=== PATIENT | female | born 1985 | race Caucasian/White ===

== ENCOUNTER 2019-02-06 12:55 | Emergency (ER) | payer MEDICAID, OTHER, SELFPAY ==
[~2019-02-06] VITALS: Ht 162.6 cm; Wt 101.8 kg
[~2019-02-06 12:55] MED LIST: ACET500T2; GUAIFENESIN DM
[2019-02-06] MEDS ORDERED: ACETAMINOPHEN 500 MG TAB PO ONE (14:30)
[2019-02-06] MEDS ORDERED: KETOROLAC 30 MG/ML VIAL (J1885) IV ONE (14:30)
[2019-02-06] MEDS ORDERED: METOCLOPRAMIDE INJ 10MG/2ML VIAL (J2765) IV ONE (14:30)
[2019-02-06] MEDS ORDERED: diphenhydrAMINE INJ 50MG/ML VIAL (J1200) IV ONE (14:30)
--- NOTE | 2019-02-06 15:53 | REP ---
CT Head without contrast HISTORY: Migraine headache COMPARISON: None There is no intraparenchymal hemorrhage, acute infarct, mass or midline shift. The ventricular system is normal in appearance. There is no extra cerebral collection. There is no fracture. The mastoid air cells are underdeveloped. The visualized sinuses are clear. IMPRESSION: There is no intracranial lesion. Electronically Signed by Luca Garsia MD 02/06/2019 03:44 P
[2019-02-06] MEDS ORDERED: REGL10TA6 PO (16:03)
[2019-02-06 16:19] VITALS: BP 103/64
== END 2019-02-06 16:55 | disposition home or self-care (01) ==
LOC: M ED 12:55
DX: G43.909 Migraine, unspecified, not intractable, without status migrainosus (principal); J34.89 Other specified disorders of nose and nasal sinuses
CPT/HCPCS: 70450; 84702; 96374; 96375; 99284; J1200; J1885; J2765